=== PATIENT | female | born 1970 | race Asian ===

== ENCOUNTER → 2017-07-06 09:50 | Day surgery (SDC) | payer BC ==
[~2017-07-06 09:50] MED LIST: Buffered Lidocaine 0.9% SYRIN* 5 ML/SYR SYRINGE INTRADERM ONE; Buffered Lidocaine 0.9% SYRIN* 5 ML/SYR SYRINGE ONE; HYDROcodone/ACETAMIN 5-325 MG* 1 TAB ONE; Midazolam* 1 MG/ML 2 ML VIAL (2 MG) ONE; ceFAZolin 2 GM PREMIX (*) 50 ML IVPB ONE; fentaNYL* 50 MCG/ML 2 ML VIAL (100 MCG VIAL) ONE
--- NOTE | 2017-07-06 11:40 | RAD ---
Indication: Status post Pleurx catheter placement. Single frontal view of the chest performed at 1119 hours was reviewed. Comparison is made with previous exam dated June 12, 2017.. Right pleural effusion is again identified. Pleural-based catheter is noted overlying the right base. Left lung field is clear. IMPRESSION: PLEURAL-BASED CATHETER PLACED IN THE RIGHT INFERIOR PLEURAL SPACE.
[2017-07-06 12:03] VITALS: BP 127/85
--- NOTE | 2017-07-07 01:39 | OP ---
CC: Dr. Corral * DATE OF OPERATION: 07/06/17 - [facility] DATE OF : 66 SURGEON: Dr. Schulte. HAMMER SMITH: None. ANESTHESIOLOGIST: Dr. Zelaya. ANESTHESIA: LMAC. PRE-OP DIAGNOSIS: Malignant right pleural effusion. POST-OP DIAGNOSIS: Malignant right pleural effusion. OPERATIVE PROCEDURE: Right PleurX catheter. DESCRIPTION OF PROCEDURE: The patient was supine on the operative table. After adequate intravenous sedation, a roll was placed under the right scapula and the right arm allowed to fall naturally across the chest. The right lateral chest was prepped with antiseptic, draped in a sterile fashion. Local infiltrative anesthesia was administered and the 9th inter-space was entered with a skinny needle in the posterior axillary line, pleural fluid was obtained and then guidewire was passed followed by the introducer and the dilator and then the peel-away introducer was used to deliver the catheter, which had been tunnelled from an anterior site. The catheter was passed through the peel-away introducer, bloody fluid was forthcoming, 500 mL was suctioned out and then this was stopped. The exit site of the catheter was sutured with 3-0 silk and the original entry site with 4-0 Vicryl followed by Steri-Strips, Tegaderm dressing was placed. He tolerated the procedure well and was brought to Recovery in good condition. No complications. No drains. No pathologic specimen. Sponge and instrument counts correct. Estimated blood loss is nil, but there was 500 mL of pleural fluid drained. [id number] #: [id number] [facility]
== END | disposition home or self-care (01) ==
LOC: OR 09:50
PROVIDERS: ATTEND Surgery
DX: C50.912 Malignant neoplasm of unspecified site of left female breast (principal); J91.0 Malignant pleural effusion; Z17.0 Estrogen receptor positive status [ER+]
CPT/HCPCS: 71010; J0690; J2250; J3010

== ENCOUNTER 2017-07-15 07:14 | Emergency (ER) | payer BC ==
[2017-07-15 07:40] VITALS: BP 110/76
--- NOTE | 2017-07-15 10:55 | UC ---
Chintan Veloz Nikita, scribed for Mali Scales DO on 07/15/17 at 0809 . HPI Wound/Suture Re-check - HPI Summary HPI Summary: This patient is a 47 year old F presenting to [facility] with a chief complaint of wound bleeding since earlier this morning. In May 2017, pt had fluid drained from her lungs. Pt had a catheter placed 9 days ago on the R side because it returned. Pt drained the wound on Jul 11 but hasnt drained it since. Pt reports she was supposed to receive another drain kit 2 days ago, but it hasnt come. Pt woke up this morning to find the dressing covered in blood. The patient rates the pain 0/10 in severity. Symptoms aggravated by nothing. Symptoms alleviated by nothing. Patient reports chronic non-productive cough. Patient denies fever, chill, AMS, N/V/D, SOB, and abdominal pain. Pt reports she stopped chemo 2 weeks ago. - History Of Current Complaint Chief Complaint: UCWounds Stated Complaint: WOUND BLEEDING Time Seen by Provider: 07/15/17 07:52 Hx Obtained From: Patient Onset/Duration: Sudden Onset - earlier this morning Pain Intensity: 0 Pain Scale Used: 0-10 Numeric Procedure Type: catheter on R side Surgery Date: 07/06/17 - Allergies/Home Medications Allergies/Adverse Reactions: Allergies Allergy/AdvReac Type Severity Reaction Status Date / Time No Known Allergies Allergy Verified 07/15/17 07:40 PMH/Surg Hx/FS Hx/Imm Hx Respiratory History: Other - Malignant pleural effusion Other Respiratory History: Malignant pleural effusion Cancer History: Breast Cancer - Surgical History Surgical History: Yes Surgery Procedure, Year, and Place: Mastectomy LEFT 2005. Power port, 2016 - Family History Known Family History: Negative: Cardiac Disease, Hypertension, Diabetes Family History: negative breast CA - Social History Alcohol Use: None Substance Use Type: None Smoking Status (MU): Never Smoked Tobacco Review of Systems Constitutional: Other - Denies fever, chills Respiratory: Cough - Non-productive, Other - Denies SOB Gastrointestinal: Other - Denies N/V/D, abdominal pain Neurological: Other - Denies AMS All Other Systems Reviewed And Are Negative: Yes Physical Exam Triage Information Reviewed: Yes Vital Signs: Initial Vital Signs Temp 99.0 F 07/15/17 07:32 Pulse 81 09/16/17 07:32 Resp 16 07/15/17 07:32 BP 110/76 07/15/17 07:32 Pulse Ox 98 07/15/17 07:32 - Additional Comments Appearance: Well-Appearing, No Pain Distress, Well-Nourished Eyes: conjunctiva clear, negative: discharge ENT: Hearing grossly normal, normal voice Neck: Normal, Supple Respiratory/Lung Sounds: Decreased breath sounds on Right side. Dressing over chest drain on R side. Bandages inside are moderately soaked with blood. Cardiovascular: RRR, No murmur Musculoskeletal: Normal Neurological: Alert, muscle tone normal Psychiatric: Normal, age appropriate behavior Skin: Normal, other -- Warm, Dry, Normal color Course/Dx - Course Course Of Treatment: This patient is a 47 year old F presenting to [facility] with a chief complaint of wound bleeding since earlier this morning. In May 2017, pt had fluid drained from her lungs. Pt had a catheter placed 9 days ago on the R side because it returned. Pt drained the wound on Jul 11 but hasnt drained it since. Pt reports she was supposed to receive another drain kit 2 days ago, but it hasnt come. Pt woke up this morning to find the dressing covered in blood. The patient rates the pain 0/10 in severity. Symptoms aggravated by nothing. Symptoms alleviated by nothing. Patient reports non- productive cough. Patient denies fever, chill, AMS, N/V/D, SOB, and abdominal pain. Consulted Dr. Gross at 0816 who advised to consult Dr. Michaud. Advised to consult with Dr. Michaud. Consulted with Dr. Michaud at 0823 about pt who recommends to check with [facility] if they have PleurX drainage; if not, send for Dr. Gross to drain the wound. Medications reviewed this visit. Pt will be discharged and sent to [facility] [place]. Pt is agreeable with this plan. - Differential Dx - Laceration/Wound Provider Diagnoses: Pleural effusion - Physician Notification/Consults Discussed Patient Care With: Neil Gross Time Discussed With Above Provider: 08:16 Instructed by Provider To: Other - Advised to consult with Dr. Michaud. Consulted with Dr. Michaud at 0823 about pt who recommends to check with [facility] if they have PleurX drainage; if not, send for Dr. Gross to drain the wound. Discharge - Discharge Plan Condition: Stable Disposition: HOME Patient Education Materials: Pleural Effusion (ED) Referrals: Terrence Casas MD [Primary Care Provider] - If Needed Additional Instructions: YOU NEED A DRAIN CHANGE FOR THE WEEKEND UNTIL YOU CAN GET SOME HOME SUPPLIES. WE ARE SORRY THAT YOU DID NOT RECEIVE THESE SUPPLIES IN A TIMELY MANOR. WE DO NOT HAVE WHAT YOU NEED HERE IN THE URGENT CARE. SO WE WILL NEED TO SEND YOU DOWN TO THE ED WHERE THEY CAN ACCESS THE SUPPLIES TO MAINTAIN YOUR DRAIN. PLEASE GO THERE IMMEDIATELY. THEY ARE EXPECTING YOU. The documentation as recorded by the Chintan gibson Nikita accurately reflects the service I personally performed and the decisions made by me, Mali Scales DO.
== END 2017-07-15 09:16 | disposition home or self-care (01) ==
LOC: UCEAST 07:14
DX: J91.0 Malignant pleural effusion (principal); Z85.3 Personal history of malignant neoplasm of breast; Z90.12 Acquired absence of left breast and nipple
CPT/HCPCS: 99211; G0463

== ENCOUNTER 2017-07-15 09:42 | Emergency (ER) | payer BC ==
--- NOTE | 2017-07-15 10:00 | ED ---
HPI Cardiac - HPI Summary HPI Summary: Pt here w/ pleuridex drain for malignant pleural effusion. She was supposed to get a new drain kit 2 days ago but has not received this yet. She is starting to get blood around her drain so came in today in an effort to get a drain change. No change in pain, breathing, etc. As comfortable as she's going to be - no concerns otherwise. - History of Current Complaint Chief Complaint: EDShortnessOfBreath Stated Complaint: POSSIBLE POLEURAL EFFUSION COMMING FROM CC Time Seen by Provider: 07/15/17 09:51 Hx Obtained From: Patient, Family/Educational [employer] President - daughter Pain Intensity: 0 - Allergy/Home Medications Allergies/Adverse Reactions: Allergies Allergy/AdvReac Type Severity Reaction Status Date / Time No Known Allergies Allergy Verified 07/15/17 07:40 PMH/Surg Hx/FS Hx/Imm Hx Previously Healthy: No - CA Endocrine/Hematology History: Denies: Hx Diabetes Cardiovascular History: Denies: Hx Congestive Heart Failure, Hx Hypertension, Other Cardiovascular Problems/Disorders Respiratory History: Reports: Other Respiratory Problems/Disorders - malignant pleural effusion History: Denies: Hx Dialysis, Hx Renal Disease Musculoskeletal History: Denies: Hx Rheumatoid Arthritis, Hx Osteoporosis Sensory History: Reports: Hx Contacts or Glasses - glasses Denies: Hx Hearing Aid Opthamlomology History: Reports: Hx Contacts or Glasses - glasses Neurological History: Denies: Other Neuro Impairments/Disorders - Cancer History Cancer Type, Location and Year: breast Hx Chemotherapy: Yes Hx Radiation Therapy: Yes - Surgical History Surgery Procedure, Year, and Place: Mastectomy LEFT 2006. Power port, 2017 Hx Anesthesia Reactions: No Infectious Disease History: No Infectious Disease History: Denies: Traveled Outside the [place] in Last 30 Days - Family History Known Family History: Positive: None Family History: negative breast CA - Social History Lives: With Family Alcohol Use: None Hx Substance Use: No Substance Use Type: Reports: None Hx Tobacco Use: No Smoking Status (MU): Never Smoked Tobacco Review of Systems Constitutional: Negative Negative: Fever, Chills Cardiovascular: Other - see HPI Gastrointestinal: Negative Positive: no symptoms reported Musculoskeletal: Negative Skin: Negative Neurological: Negative Psychological: Normal All Other Systems Reviewed And Are Negative: Yes Physical Exam Triage Information Reviewed: Yes Vital Signs On Initial Exam: Initial Vitals Temp Pulse Resp BP Pulse Ox 98.1 F 74 14 135/91 100 07/15/17 09:44 07/15/17 09:44 07/15/17 09:44 07/15/17 09:44 07/15/17 09:44 Vital Signs Reviewed: Yes Appearance: Positive: Well-Appearing, No Pain Distress - alopecia 2ndry to chemotherapy Skin: Positive: Warm Head/Face: Positive: Normal Head/Face Inspection Eyes: Positive: Normal, EOMI, Conjunctiva Clear - anicteric sclera ENT: Positive: Hearing grossly normal Respiratory/Lung Sounds: Positive: Clear to Auscultation - Rt upper lobe and Lt side completely clear, Decreased Breath Sounds - Rt mid and lower lobes, Other - drain in place over Rt chest wall - blood within dressing - removed and surrounding skin is clear w/o edema, crepitus, erythema, purulent drainage or fever to touch. Negative: Rales, Rhonchi, Subcutaneous Emphysema, Stridor, Tracheal Deviation, Wheezes Cardiovascular: Positive: RRR Abdomen Description: Positive: Nontender, Soft Musculoskeletal: Positive: Normal, Strength/ROM Intact Neurological: Positive: Normal, Sensory/Motor Intact, Alert, Oriented to Person Place, Time, CN Intact II-III Psychiatric: Positive: Normal Procedures - Procedure Summary Procedure Summary: Chest drain dressing changed - wound vac container applied by daughter - filled 500cc w/ bloody d/c - pt had mild intermittent cough during procedure but otherwise tolerated well. Sent home w/ additional drainage kits. Diagnostics - Vital Signs Vital Signs Temp Pulse Resp BP Pulse Ox 07/15/17 09:44 98.1 F 74 14 135/91 100 - Laboratory Lab Statement: Any lab studies that have been ordered have been reviewed, and results considered in the medical decision making process. Re-Evaluation - Re-Evaluation First Eval Change: Improved Disposition - Course Course Of Treatment: Pt's chest drained through pre-existing tubing. No s/sx of infection or malfunction. Spoke w/ Erika 2 x who agrees pt may be d/c'd with drainage kits. Pt and daughter advised to return if danger s/sx present. They agree w/ plan. - Diagnoses Provider Diagnoses: Malignant pleural effusion Discharge - Discharge Plan Condition: Stable Disposition: HOME Patient Education Materials: Pleural Effusion (ED) Referrals: Terrence Casas MD [Primary Care Provider] - Additional Instructions: Drain again on Monday as planned If symptoms worsen, return to the ED We have given you a new kit today Follow up as planned
[2017-07-15 11:26] VITALS: BP 127/87
--- NOTE | 2017-07-15 11:26 | PN ---
Progress Note - Progress Note Date of Service: 07/15/17 Note: Signed out from Cielo Beard PA-C at 10:30am. Patient has right sided pleuridex drain for malignant pleural effusion. Discussed with patient the benefits of draining excess fluid (more than her usual 500cc) since the delay since the last drainage. Patient and daughter state they are concerned draining too much fluid from the lung causing spastic coughs. Again, explained to the patient an extra 50-100cc's will help only d/t the delay and she would be having excess fluid in the lung. She again declines and would like to wait for the next drain on Monday. Kit given in the ED per Dr. Coley. Patient and daughter are OK with discharge.
== END 2017-07-15 12:04 | disposition home or self-care (01) ==
LOC: ED 09:42
DX: Z04.8 Encounter for examination and observation for other specified reasons (principal); Z85.3 Personal history of malignant neoplasm of breast; J91.0 Malignant pleural effusion
CPT/HCPCS: 99282